=== PATIENT | male | born 1980 | race Caucasian/White ===

== ENCOUNTER 2024-04-12 21:35 | Emergency (ER) | payer MEDICAID ==
[~2024-04-12] VITALS: Ht 182.9 cm; Wt 86.0 kg
[2024-04-12 21:48] VITALS: BP 100/99; PULSE 72; RESP 16; TEMP 97.6; O2SAT 97
== END 2024-04-13 00:37 | disposition left against medical advice (07) ==
LOC: ER 21:35
DX: Z00.00 Encounter for general adult medical examination without abnormal findings (principal); F10.90 Alcohol use, unspecified, uncomplicated; Y90.9 Presence of alcohol in blood, level not specified
CPT/HCPCS: 99283

== ENCOUNTER 2024-05-16 23:53 | Emergency (ER) | payer MEDICAID ==
[~2024-05-16] VITALS: Ht 180.3 cm; Wt 90.0 kg
[2024-05-16 23:55] VITALS: BP 168/90; PULSE 105; RESP 18; TEMP 98.2; O2SAT 99
== END 2024-05-17 00:15 | disposition home or self-care (01) ==
LOC: ER 23:53
DX: R03.0 Elevated blood-pressure reading, without diagnosis of hypertension (principal)
CPT/HCPCS: 99283